=== PATIENT | male | born 1970 | race Hispanic/Latino ===

== ENCOUNTER 2018-06-26 01:33 | Emergency (ER) | payer SELFPAY ==
[2018-06-26] MEDS ORDERED: Dexamethasone 10 MG/ML VIAL ONE (02:06)
== END 2018-06-26 03:03 | disposition home or self-care (01) ==
LOC: ERS 01:33
DX: H20.00 Unspecified acute and subacute iridocyclitis (principal)
CPT/HCPCS: 87081; 87430; 96372; J1100

== ENCOUNTER 2023-01-24 05:51 | Emergency (ER) | payer SELFPAY ==
[2023-01-24] MEDS ORDERED: predniSONE 20 MG TAB ONE (06:32)
[2023-01-24] MEDS ORDERED: Ibuprofen 200 MG TAB ONE (06:32)
== END 2023-01-24 07:15 | disposition home or self-care (01) ==
LOC: ERS 05:51
DX: J02.9 Acute pharyngitis, unspecified (principal)
CPT/HCPCS: 99282; J7512